=== PATIENT | female | born 1965 | race Asian ===

== ENCOUNTER 2024-10-05 13:33 | Outpatient (CLI) | payer MEDICAID ==
--- NOTE | 2024-10-05 15:57 | RADIOLOGY REPORT ---
CLINICAL HISTORY: LEFT KNEE PAIN, PRE-PATELLAR BURSITIS TECHNIQUE: MRI of the left foot was performed without gadolinium. COMPARISON: None FINDINGS: The ACL, PCL, medial collateral ligament, and lateral ligamentous complex are intact. The medial and lateral menisci are intact. The patellar, quadriceps, and popliteus tendons are intact. There is no hydrate cartilage defect or significant osteophyte formation. There is trace physiologic fluid within the joint. No stein cyst is seen. There is a 1.4 (AP) x 3.7 (TV) x 4.0 (CC) cm prepatellar fluid collection, compatible prepatellar bur sitis. There is a small amount of surrounding subcutaneous fluid. IMPRESSION: No MRI evidence for for internal derangement. 1.4 x 3.7 x 4.0 seen prepatellar fluid collection, compatible with prepatellar Bursitis, with small a mount of surrounding subcutaneous e fluid
== END 2024-10-05 23:59 | disposition home or self-care (01) ==
LOC: MRI02 13:33
PROVIDERS: ATTEND Nurse Practitioner Family
DX: M70.42 Prepatellar bursitis, left knee (principal); M25.562 Pain in left knee
CPT/HCPCS: 73721